=== PATIENT | female | born 1955 | race Caucasian/White ===

== ENCOUNTER 2023-12-22 13:59 | Observation (INO) | payer MEDICARE, BC, SELFPAY ==
[2023-12-22] VITALS (35 sets, daily range): BP systolic 112–189; BP diastolic 72–115; PULSE 62–82; RESP 16–19; TEMP 36.6–36.7; O2SAT 91–97; BMI 30.5; BMI 31.3
--- NOTE | 2023-12-22 14:18 | CRLHL7_ITS ---
For Patients: As a result of the Century Cures Act, medical imaging exams and procedure reports are released immediately into your electronic medical record. You may view this report before your referring provider. If you have questions, please contact your health care provider. INDICATION: COMPARISON: None. TECHNIQUE: CT of the head without contrast. FINDINGS: Brain, ventricles, and extra-axial spaces: No acute intracranial hemorrhage. Murphy-white differentiation is grossly preserved. Size of the ventricles and sulci appears to be commensurate with age. Bones: No acute osseous findings. Mild mucosal thickening in the paranasal sinuses. Visualized mastoid air cells are clear. 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 IMPRESSION: No acute intracranial noncontrast CT findings. Please note that all CT scans at this facility use dose modulation, iterative reconstruction, and/or weight-based dosing when appropriate to reduce radiation dose to as low as reasonably achievable. Dictated by Alexander Victoria MD @ 12/22/2023 2:49:20 PM (Electronically Signed)
[2023-12-22 15:09] LABS: Basophils Absolute Auto 0.04 K/uL (0.00-0.30); Basophils Percent Auto 0.6 % (0.0-3.0); Eosinophils Absolute Auto 0.15 K/uL (0.00-0.50); Eosinophils Percent Auto 2.4 % (0.0-7.0); Hematocrit 46.4 % (33.0-51.0); Hemoglobin* 15.4 gm/dL (12.0-16.0); Immature Granulocytes Abs Auto 0.07 K/uL (0.00-0.30); Immature Granulocytes Pct Auto 1.1 %; Lymphocytes Absolute Auto 1.76 K/uL (0.90-2.90); Lymphocytes Percent Auto 28.3 % (20-44); Mean Corpuscular HGB Conc 33 gm/dL (32-36); Mean Corpuscular Hemoglobin 30 pg (26-34); Mean Corpuscular Volume 90 fL (80-100); Monocytes Percent Auto 9.6 % (0.0-11.0); Platelet Count* 247 K/uL (140-440); RDW Coefficient of Variation % 13.1 % (11.5-15.5); Red Blood Count 5.14 m/uL (4.00-5.20); White Blood Count* 6.22 K/uL (4.50-11.00)
[2023-12-22 15:09] LABS: Troponin, Point-of-Care* 0.03 ng/ml (0.01-0.04)
[2023-12-22] MEDS: 0.9 % SODIUM CHLORIDE 500 ML 500 ML IV (15:09)
[2023-12-22] MEDS: ONDANSETRON 2 MG/ML inj 4 MG IVP (15:10)
[2023-12-22 15:11] LABS: Slide Review Reflex No
[2023-12-22] MEDS: KETOROLAC 15 MG/ML inj IVP (15:11)
[2023-12-22] MEDS: diphenhydrAMINE 50 MG/ML inj 25 MG IVP (15:11)
[2023-12-22 15:25] LABS: Chloride* 104 mmol/L (96-114); Potassium* 3.8 mmol/L (3.6-5.1); Sodium* 139 mmol/L (135-149)
[2023-12-22 15:28] LABS: Anion Gap 11 mEq/L (7-15); Carbon Dioxide* 24 mmol/L (20-32); Creatinine* 0.6 mg/dL (0.5-1.5); Est. Creatinine Clearance* 53.09; Estimated Glomerular Filt Rate 98 ml/min
[2023-12-22 15:29] LABS: Blood Urea Nitrogen* 14 mg/dL (7-30); Calcium* 10.2 mg/dL (8.4-10.6); Glucose* 117 mg/dL (60-115)
[2023-12-22 15:51] LABS: D Dimer Quantitative* < 0.27 ug/ml (0.00-0.50)
--- NOTE | 2023-12-22 16:32 | ED_ITS ---
HPI - General Adult General Date Seen: 12/22/23 Chief complaint: Headache/Migraine Stated complaint: chest pain, headache, high BP, Time Seen by Provider: 12/22/23 14:29 Source: patient Mode of arrival: ambulatory Limitations: no limitations History of Present Illness HPI narrative: Patient is a 68-year-old woman here with her . She went to the dentist today, she said it was a new dentist and they were going over just a treatment plan. She did not actually have any dental work done today. She was checking out of the dentist when she says she got terrible burning pain on the top of her head. She has had a headache behind her left eye that she woke up with this morning. She says that this is a typical migraine for her, she ate half of a Brownie 2 days ago and says that that is probably what triggered it, she says typically 2 days after she eats chocolate she will get a migraine. In any case, the headache behind the eye did not bother her but the headache on the top of her head was new. She says they checked her blood pressure at the dentist's office and it was elevated at around 195 systolic. She also notes she had a brief period where she had some burning in her chest as well although that resolved. She still has this pain on the top of her head although it is milder. She continues to have the headache behind her left eye. She has had a little bit of nausea and a little bit of light sensitivity. No neurologic changes. She does take lisinopril for her blood pressure and says that she has weaned down to 5 mg, but wonders if maybe that is not enough. She has a history of subarachnoid hemorrhage in 2007, she says that they determined that was possibly from multiple concussions. She did not have any aneurysms or require intervention at that time. She is not anticoagulated. Related Data Home Medications ?Medication ?Instructions ?Recorded ?Confirmed levothyroxine 137 mcg capsule 137 mcg PO DAILY 12/22/23 12/22/23 lisinopril 5 mg tablet 5 mg PO DAILY 12/22/23 12/22/23 Allergies Allergy/AdvReac Type Severity Reaction Status Date / Time gluten Allergy Verified 12/22/23 14:09 penicillin G Allergy Verified 12/22/23 14:09 Review of Systems Status of ROS: Reports: 10 or more systems reviewed and unremarkable except as noted in History and below [facility] Social History Smoking Status: Never smoker How often do you have a drink containing alcohol: 4 or more times a week How many standard drinks containing alcohol do you have on a typical day: 1 or 2 How often do you have six or more drinks on one occasion: Never AUDIT-C Alcohol total score: 4 Non-prescribed substance use: denies use Exam Narrative: Exam Narrative: Vital signs as noted above. In general, an alert, well-appearing patient. Head: Normocephalic, atraumatic. Eyes: Pupils are equal reactive. Extraocular movements are full. Conjunctivae are normal. ENT: Mucous membranes are moist. Throat is normal. Neck: Supple without lymphadenopathy. Heart: Regular rate and rhythm. No murmur or rub. Lungs: Clear bilaterally. No increased work of breathing, crackles or wheezes. Abdomen: Soft and nontender. No organomegaly. Extremities: Well perfused. No edema. No calf tenderness. Pulses intact. Neurologic: Patient is alert and oriented to person and place. Speech is fluent. Face is symmetric. Moves all extremities equally. Affect: Normal. Skin: Warm and dry. Well perfused. Const: Vital Signs, click to edit/add: Vital Signs - 24 hr 12/22/23 14:04 12/22/23 15:06 12/22/23 15:08 Temperature 97.8 F Pulse Rate 71 80 Pulse Rate [Right Pulse Oximeter] 66 Respiratory Rate 19 Blood Pressure 171/109 H Blood Pressure [Ri ght Upper Arm] 170/107 H Pulse Oximetry 95 95 96 Oxygen Delivery Me thod Room Air 12/22/23 15:15 12/22/23 15:20 12/22/23 15:20 Temperature Pulse Rate 78 76 76 Pulse Rate [Right Pulse Oximeter] Respiratory Rate Blood Pressure 189/115 H 189/115 H Blood Pressure [Ri ght Upper Arm] Pulse Oximetry 96 95 95 Oxygen Delivery Me thod 12/22/23 15:21 12/22/23 15:30 12/22/23 15:33 Temperature Pulse Rate 76 72 76 Pulse Rate [Right Pulse Oximeter] Respiratory Rate Blood Pressure 178/108 H Blood Pressure [Ri ght Upper Arm] Pulse Oximetry 96 97 95 Oxygen Delivery Me thod 12/22/23 15:45 12/22/23 16:00 12/22/23 16:02 Temperature Pulse Rate 82 73 72 Pulse Rate [Right Pulse Oximeter] Respiratory Rate Blood Pressure 149/95 H Blood Pressure [Ri ght Upper Arm] Pulse Oximetry 96 94 96 Oxygen Delivery Me thod 12/22/23 16:02 12/22/23 16:03 12/22/23 16:15 Temperature Pulse Rate 72 70 76 Pulse Rate [Right Pulse Oximeter] Respiratory Rate Blood Pressure 149/95 H Blood Pressure [Ri ght Upper Arm] Pulse Oximetry 96 94 94 Oxygen Delivery Me thod 12/22/23 17:28 12/22/23 17:30 12/22/23 17:32 Temperature Pulse Rate 69 72 70 Pulse Rate [Right Pulse Oximeter] Respiratory Rate Blood Pressure 127/82 Blood Pressure [Ri ght Upper Arm] Pulse Oximetry 94 91 92 Oxygen Delivery Me thod 12/22/23 17:45 12/22/23 18:00 12/22/23 18:02 Temperature Pulse Rate 69 70 66 Pulse Rate [Right Pulse Oximeter] Respiratory Rate Blood Pressure 112/72 Blood Pressure [Ri ght Upper Arm] Pulse Oximetry 93 94 93 Oxygen Delivery Me thod 12/22/23 18:03 12/22/23 18:15 12/22/23 18:30 Temperature Pulse Rate 69 71 67 Pulse Rate [Right Pulse Oximeter] Respiratory Rate Blood Pressure Blood Pressure [Ri ght Upper Arm] Pulse Oximetry 94 96 95 Oxygen Delivery Me thod 12/22/23 18:32 12/22/23 18:33 12/22/23 18:45 Temperature Pulse Rate 65 71 67 Pulse Rate [Right Pulse Oximeter] Respiratory Rate Blood Pressure 154/93 H Blood Pressure [Ri ght Upper Arm] Pulse Oximetry 94 94 96 Oxygen Delivery Me thod 12/22/23 19:23 12/22/23 19:30 12/22/23 19:32 Temperature Pulse Rate 73 75 77 Pulse Rate [Right Pulse Oximeter] Respiratory Rate Blood Pressure 140/99 H Blood Pressure [Ri ght Upper Arm] Pulse Oximetry 93 95 95 Oxygen Delivery Me thod Documenting provider has reviewed patient's vital signs: yes Course Course ED Course: On arrival, a stroke code was called initially secondary to new onset headache and hypertension. She went over for CT scan of the head which I reviewed I did not see any evidence of intracranial hemorrhage. In the absence of findings on CT or neurologic changes, the stroke code was canceled. We are within 6 hours of onset of symptoms and I think a CT scan is adequate to rule out subarachnoid hemorrhage in this case. She had an EKG, there is some artifact in leads V4 5 and 6, but overall the EKG shows some nonspecific ST and T changes, maybe a mm of ST depression in lead 2 and F but none in lead 3, no significant reciprocal changes. Initial troponin was 0.03. She did request treatment for the headache behind her left eye, she thought the headache might be contributing to her elevated blood pressure readings. She received Zofran, Toradol and Benadryl, and her blood pressure has in fact come down to 149/95. Headache is improved. Blood work shows a white blood cell count of 6.22, hemoglobin of 15.4, I checked a D-dimer, mostly with the thought of venous sinus thrombosis in mine. My clinical suspicion for this is low and the D-dimer is negative, I think this ef fectively rules this diagnosis out. Metabolic panel is normal. I do think with her troponin at 0.03 that it makes sense to do a repeat troponin. Repeat point of care troponin was 0.12, I checked this in the lab and came back at 0.18. She has not had any chest pain since arrival. Continues to feel well. She had essentially 15 minutes of this burning sensation in her chest at the time her blood pressure was high. I did talk with Dr. Mario, on-call for Cardiology at [place]. He felt that her troponin bump is likely related to the period of hypertension, did not feel that she needed heparinized or transferred at this time. He did recommend admission for serial troponins, an echo tomorrow and then outpatient follow-up for stress test with Cardiology. He said that his staff can arrange her outpatient follow-up if we were able to keep her here in the hospital. I have discussed her care with Dr. Buenrostro, he will admit her as outlined above. Vital Signs Vital signs: Initial Vital Signs Temperature 97.8 F 12/22/23 14:04 Temperature Source Temporal Artery Scan 12/22/23 14:04 Pulse Rate 66 12/22/23 14:04 Respiratory Rate 19 12/22/23 14:04 Blood Pressure 170/107 H 12/22/23 14:04 Blood Pressure Mean 128 H 12/22/23 14:04 Blood Pressure Position Sitting 12/22/23 14:04 Pulse Oximetry 95 12/22/23 14:04 Oxygen Delivery Method Room Air 12/22/23 14:04 Vital Signs Temperature 97.8 F 12/22/23 14:04 Pulse Rate 66 12/22/23 14:04 Respiratory Rate 19 12/22/23 14:04 Blood Pressure 170/107 H 12/22/23 14:04 Pulse Oximetry 95 12/22/23 14:04 Oxygen Delivery Method Room Air 12/22/23 14:04 Temperature 97.8 F 12/22/23 14:04 Pulse Rate 77 12/22/23 19:32 Respiratory Rate 19 12/22/23 14:04 Blood Pressure 140/99 H 12/22/23 19:32 Pulse Oximetry 95 12/22/23 19:32 Oxygen Delivery Method Room Air 12/22/23 14:04 Medications Administered Medications: Discontinued Medications Generic Name Dose Route Start Last Admin Trade Name Loiq PRN Reason Stop Dose Admin Aspirin 324 mg 12/22/23 19:19 12/22/23 19:29 Aspirin 81 Mg Tab.Chew PO 12/22/23 19:20 324 mg ONCE ONE Administration Diphenhydramine HCl 25 mg 12/22/23 14:48 12/22/23 15:11 Diphenhydramine 50 Mg/Ml Inj IVP 12/22/23 14:49 25 mg ONCE ONE Administration Sodium Chloride 500 mls @ 500 mls/hr 12/22/23 14:48 12/22/23 16:25 0.9 % Sodium Chloride 500 Ml IV 12/22/23 15:47 Infused .Q1H ONE Infusion Ketorolac Tromethamine 15 mg 12/22/23 14:48 12/22/23 15:11 Ketorolac 15 Mg/Ml Inj IVP 12/22/23 14:49 15 mg ONCE ONE Administration Ondansetron HCl 4 mg 12/22/23 14:48 12/22/23 15:10 Ondansetron 2 Mg/Ml Inj IVP 12/22/23 14:49 4 mg ONCE ONE Administration Medical Decision Making Lab Data Labs: Lab Results 12/22/23 12/22/23 12/22/23 Range/Units 14:44 14:51 17:06 WBC 6.22 (4.50-11.00) K/uL RBC 5.14 (4.00-5.20) m/uL Hgb 15.4 (12.0-16.0) gm/dL Hct 46.4 (33.0-51.0) % MCV 90 (80-100) fL MCH 30 (26-34) pg MCHC 33 (32-36) gm/dL RDW Coeff of Leno 13.1 (11.5-15.5) % Plt Count 247 (140-440) K/uL Neut % (Auto) 58.0 (42.0-72.0) % Lymph % (Auto) 28.3 (20-44) % [place] % (Auto) 9.6 (0.0-11.0) % Eos % (Auto) 2.4 (0.0-7.0) % Baso % (Auto) 0.6 (0.0-3.0) % Neut # (Auto) 3.60 (1.7-7.0) K/uL Lymph # (Auto) 1.76 (0.90-2.90) K/uL [place] # (Auto) 0.60 (0.00-0.90) K/UL Eos # (Auto) 0.15 (0.00-0.50) K/uL Baso # (Auto) 0.04 (0.00-0.30) K/uL Abs Immat Gran (auto) 0.07 (0.00-0.30) K/uL Imm/Tot Granulo (auto) 1.1 % D-Dimer Quant (PE/DVT) < 0.27 (0.00-0.50) ug/ml Sodium 139 (135-149) mmol/L Potassium 3.8 (3.6-5.1) mmol/L Chloride 104 (96-114) mmol/L Carbon Dioxide 24 (20-32) mmol/L Anion Gap 11 (7-15) mEq/L BUN 14 (7-30) mg/dL Creatinine 0.6 (0.5-1.5) mg/dL Estimated Creat Clear 53.09 Estimated GFR 98 ml/min Glucose 117 H (60-115) mg/dL Calcium 10.2 (8.4-10.6) mg/dL Troponin I (0.01-0.04) ng/mL Lab Acknowledgement POC Troponin I 0.03 0.12 H (0.01-0.04) ng/ml 12/22/23 12/22/23 Range/Units 17:10 19:27 WBC (4.50-11.00) K/uL RBC (4.00-5.20) m/uL Hgb (12.0-16.0) gm/dL Hct (33.0-51.0) % MCV (80-100) fL MCH (26-34) pg MCHC (32-36) gm/dL RDW Coeff of Leon (11.5-15.5) % Plt Count (140-440) K/uL Neut % (Auto) (42.0-72.0) % Lymph % (Auto) (20-44) % [place] % (Auto) (0.0-11.0) % Eos % (Auto) (0.0-7.0) % Baso % (Auto) (0.0-3.0) % Neut # (Auto) (1.7-7.0) K/uL Lymph # (Auto) (0.90-2.90) K/uL [place] # (Auto) (0.00-0.90) K/UL Eos # (Auto) (0.00-0.50) K/uL Baso # (Auto) (0.00-0.30) K/uL Abs Immat Gran (auto) (0.00-0.30) K/uL Imm/Tot Granulo (auto) % D-Dimer Quant (PE/DVT) (0.00-0.50) ug/ml Sodium (135-149) mmol/L Potassium (3.6-5.1) mmol/L Chloride (96-114) mmol/L Carbon Dioxide (20-32) mmol/L Anion Gap (7-15) mEq/L BUN (7-30) mg/dL Creatinine (0.5-1.5) mg/dL Estimated Creat Clear Estimated GFR ml/min Glucose (60-115) mg/dL Calcium (8.4-10.6) mg/dL Troponin I 0.18 H* (0.01-0.04) ng/mL Lab Acknowledgement Test Added POC Troponin I (0.01-0.04) ng/ml Discharge Plan Discharge Clinical Impression: Hypertension, Headache, Elevated troponin I level Patient Disposition: Admitted As Observation Condition: Improved
[2023-12-22 17:30] LABS: Troponin, Point-of-Care* 0.12 ng/ml (0.01-0.04)
[2023-12-22 18:19] LABS: Troponin I* 0.18 ng/mL (0.01-0.04)
[2023-12-22] MEDS: ASPIRIN 81 MG TAB.CHEW 324 MG PO (19:29)
[2023-12-22 20:13] LABS: Troponin I* 0.03 ng/mL (0.01-0.04)
[2023-12-22] MEDS: SODIUM CHLORIDE 0.9 % (FLUSH) 10 ML SYRINGE 5 ML IVF (21:15)
[2023-12-22 21:40] LABS: Troponin I* 0.24 ng/mL (0.01-0.04)
--- NOTE | 2023-12-22 22:32 | P.IMHP_ITS ---
Hospitalist- H&P: HPI History of Present Illness Date Seen: 12/22/23 Chief complaint: chest pain, headache, high BP, Narrative: Frieda Mayer is a 68 year old woman who presented to the emergency department today at the behest of her dentist due to elevated blood pressure. Had an appointment with a new dentist today to establish care and not have any dental work done. While at the dentist developed terrible, burning pain on the top of her head as she does when she has a migraine headache. In association with this her blood pressures were elevated with systolic values as high as 195 mmHg while at the dentist office. Also had transient episode of burning in her chest and left eye discomfort. These resolved before arriving to the emergency department. No acute neurologic changes. She surmises that her migraine occurred in consequence of her consuming a chocolate brawny 2 days ago, as something similar to this has happened in the past after such exposure. Details intolerance to various foods, including gluten. Has been working with her primary care physician to lower her antihypertensive medication lisinopril due to previously having lightheaded episodes while on higher doses. Lisinopril dose has been down to 5 mg for a few months now. Has been doing well in that regard for the most part. She was evaluated and managed in our emergency department. Headache significantly improved and for the most part resolved after standard treatment for migraine headache. Blood pressure is significantly improved with resolution of headache. CT scan of the head demonstrated no acute hemorrhage. Controlled by initially mildly elevated at 0.03. Repeat trop I subsequently elevated at 0.18. Electrocardiogram without acute infarct or ischemic changes. Discussion undertaken with [facility] internet network specialist, Dr. Peters, who surmises that patient has myocardial injury related to hypertensive urgency episode that is nonischemic and nontraumatic and recommended admission for observation, cardiac monitoring, serial EKG, serial troponin I, and echocardiogram. She also recommended if patient does well to set up outpatient followup with internet network specialist at the [facility], where they would continue to assess her and risk stratify her for ischemic cardiac disease. Review of Systems Status of ROS: Reports: 6 or more systems reviewed and unremarkable except as noted in History and below Narrative: She has never had a an acute myocardial infarction in the past. To the best of her knowledge she does not have coronary artery disease or hyperlipidemia. Has never used any tobacco products. Drinks 1 glass of wine every night. Remains physically active without symptoms or limitations. As I visit with her she denies chest, neck, back, or arm heaviness, pressure, tightness, or pain. Denies nausea or vomiting. Denies any other anginal equivalent. Denies syncope or near-syncope. Denies palpitations or chest fl uttering. Denies edema. Designates her , Madi, as her power of survey worker for health should that be required. His cell phone number is [phone]. She requests full resuscitation in the event of cardiopulmonary demise. [facility] Medical History (Updated 12/22/23 @ 23:00 by Parish Buenrostro MD) Gluten intolerance ?K90.41 - Non-celiac gluten sensitivity (ICD-10) History of subarachnoid hemorrhage ?Z86.79 - Personal history of other diseases of the circulatory system (ICD- 10) Migraine with aura and without status migrainosus, not intractable ?G43.109 - Migraine with aura, not intractable, without status migrainosus (ICD-10) Nonrheumatic mitral valve regurgitation ?I34.0 - Nonrheumatic mitral (valve) insufficiency (ICD-10) Hypothyroidism ?E03.9 - Hypothyroidism, unspecified (ICD-10) Hypertension ?I10 - Essential (primary) hypertension (ICD-10) Surgical History (Updated 12/22/23 @ 22:28 by Parish Buenrostro MD) History of tonsillectomy ?Z90.89 - Acquired absence of other organs (ICD-10) History of right oophorectomy ?Z90.721 - Acquired absence of ovaries, unilateral (ICD-10) History of laparoscopic cholecystectomy ?Z90.49 - Acquired absence of other specified parts of digestive tract (ICD- 10) History of hysterectomy for benign disease ?Z90.710 - Acquired absence of both cervix and uterus (ICD-10) Family History (Updated 12/22/23 @ 22:32 by Parish Buenrostro MD) Brother Aneurysm Maternal Grandmother Aneurysm Paternal Grandfather Kidney disease Mother Diabetes Breast cancer Father Diabetes Parkinson disease Social History What is your current living situation?: I presently have a place to live Problems where you live: no known problems Problems where you live details: NA In the past 12 months, utilities in danger of being shut off: no In past 12 months, lack of transportation kept you from medical appts, meetings, work, or getting things needed for daily living: no In the past 12 mos, have been you worried that your food would run out before you had money to buy more?: never true In the past 12 mos, the food you bought just didn't last and you didn't have money to buy more?: never true Highest level of school completed/degree received: Bachelor's degree Smoking Status: Never smoker How often do you have a drink containing alcohol: 4 or more times a week Alcohol type: wine How many standard drinks containing alcohol do you have on a typical day: 1 or 2 How often do you have six or more drinks on one occasion: Never AUDIT-C Alcohol total score: 4 Non-prescribed substance use: denies use How often does anyone, including family, friends and others, physically hurt you : never How often does anyone, including family, friends and others, insult or talk down to you: never How often does anyone, including family, friends and others, threaten you with harm: never How often does anyone, including family, friends and others, scream or curse at you: never service: No Meds Home Medications and Allergies Home Medications ?Medication ?Instructions ?Recorded ?Confirmed ?Type levothyroxine 137 mcg capsule 137 mcg PO DAILY 12/22/23 12/22/23 History lisinopril 5 mg tablet 5 mg PO DAILY 12/22/23 12/22/23 History Home Medication Comments: She states she strictly adheres to her medication regimen as prescribed. Allergies Allergy/AdvReac Type Severity Reaction Status Date / Time gluten Allergy Verified 12/22/23 14:09 penicillin G Allergy Verified 12/22/23 14:09 Exam Narrative: Exam Narrative: Examine her in the emergency department. She appears comfortable and in no acute distress. By the time I see her her systolic blood pressures are 140-150 mmHg with diastolic values around 80 mmHg. Vision and hearing are adequate. Alert and oriented x4. Friendly, articulate, cooperative. Cranial nerves 3-12 grossly normal. No focal motor neurologic deficits. External auditory canals and tympanic membranes are normal. Midline nasal septum. Normal buccal mucosa. Mallampati class 3 airway. No icterus or conjunctival injection. Pupils equally round and reactive to light and accommodation. Conjugate gaze. Neck is supple. Midline trachea. No head neck lymphadenopathy. Lungs entirely clear to auscultation without wheezing, rhonchi, or rales. Chest wall excursions are full. No CVA tenderness to thumping. Heart tones with regular rhythm, normal S1-S2, without obvious murmur, gallop, or rub. PMI not laterally displaced. Abdomen with active bowel sounds, soft, nontender. No rebound or guarding. Extremities without edema. Palpable pulses upper and lower extremities. Capillary refill less than 3 seconds in upper and lower extremities. Independent transfer, station, and gait. Skin is warm, dry, intact. No petechiae, rashes, jaundice, or cyanosis. Const: Vital Signs, click to edit/add: Vital Signs - 24 hr 12/22/23 14:04 12/22/23 15:06 12/22/23 15:08 Temperature 97.8 F Pulse Rate 71 80 Pulse Rate [Pulse Oximeter] Pulse Rate [Right Pulse Oximeter] 66 Respiratory Rate 19 Blood Pressure 171/109 H Blood Pressure [Le ft Arm] Blood Pressure [Ri ght Upper Arm] 170/107 H Pulse Oximetry 95 95 96 Oxygen Delivery Me thod Room Air 12/22/23 15:15 12/22/23 15:20 12/22/23 15:20 Temperature Pulse Rate 78 76 76 Pulse Rate [Pulse Oximeter] Pulse Rate [Right Pulse Oximeter] Respiratory Rate Blood Pressure 189/115 H 189/115 H Blood Pressure [Le ft Arm] Blood Pressure [Ri ght Upper Arm] Pulse Oximetry 96 95 95 Oxygen Delivery Me thod 12/22/23 15:21 12/22/23 15:30 12/22/23 15:33 Temperature Pulse Rate 76 72 76 Pulse Rate [Pulse Oximeter] Pulse Rate [Right Pulse Oximeter] Respiratory Rate Blood Pressure 178/108 H Blood Pressure [Le ft Arm] Blood Pressure [Ri ght Upper Arm] Pulse Oximetry 96 97 95 Oxygen Delivery Me thod 12/22/23 15:45 12/22/23 16:00 12/22/23 16:02 Temperature Pulse Rate 82 73 72 Pulse Rate [Pulse Oximeter] Pulse Rate [Right Pulse Oximeter] Respiratory Rate Blood Pressure 149/95 H Blood Pressure [Le ft Arm] Blood Pressure [Ri ght Upper Arm] Pulse Oximetry 96 94 96 Oxygen Delivery Pa thod 12/22/23 16:02 12/22/23 16:03 12/22/23 16:15 Temperature Pulse Rate 72 70 76 Pulse Rate [Pulse Oximeter] Pulse Rate [Right Pulse Oximeter] Respiratory Rate Blood Pressure 149/95 H Blood Pressure [Le ft Arm] Blood Pressure [Ri ght Upper Arm] Pulse Oximetry 96 94 94 Oxygen Delivery Pa thod 12/22/23 17:28 12/22/23 17:30 12/22/23 17:32 Temperature Pulse Rate 69 72 70 Pulse Rate [Pulse Oximeter] Pulse Rate [Right Pulse Oximeter] Respiratory Rate Blood Pressure 127/82 Blood Pressure [Le ft Arm] Blood Pressure [Ri ght Upper Arm] Pulse Oximetry 94 91 92 Oxygen Delivery Pa thod 12/22/23 17:45 12/22/23 18:00 12/22/23 18:02 Temperature Pulse Rate 69 70 66 Pulse Rate [Pulse Oximeter] Pulse Rate [Right Pulse Oximeter] Respiratory Rate Blood Pressure 112/72 Blood Pressure [Le ft Arm] Blood Pressure [Ri ght Upper Arm] Pulse Oximetry 93 94 93 Oxygen Delivery Pa thod 12/22/23 18:03 12/22/23 18:15 12/22/23 18:30 Temperature Pulse Rate 69 71 67 Pulse Rate [Pulse Oximeter] Pulse Rate [Right Pulse Oximeter] Respiratory Rate Blood Pressure Blood Pressure [Le ft Arm] Blood Pressure [Ri ght Upper Arm] Pulse Oximetry 94 96 95 Oxygen Delivery Pa thod 12/22/23 18:32 12/22/23 18:33 12/22/23 18:45 Temperature Pulse Rate 65 71 67 Pulse Rate [Pulse Oximeter] Pulse Rate [Right Pulse Oximeter] Respiratory Rate Blood Pressure 154/93 H Blood Pressure [Le ft Arm] Blood Pressure [Ri ght Upper Arm] Pulse Oximetry 94 94 96 Oxygen Delivery Pa thod 12/22/23 19:23 12/22/23 19:30 12/22/23 19:32 Temperature Pulse Rate 73 75 77 Pulse Rate [Pulse Oximeter] Pulse Rate [Right Pulse Oximeter] Respiratory Rate Blood Pressure 140/99 H Blood Pressure [Le ft Arm] Blood Pressure [Ri ght Upper Arm] Pulse Oximetry 93 95 95 Oxygen Delivery Pa thod 12/22/23 19:33 12/22/23 19:45 12/22/23 20:00 Temperature Pulse Rate 75 80 76 Pulse Rate [Pulse Oximeter] Pulse Rate [Right Pulse Oximeter] Respiratory Rate Blood Pressure Blood Pressure [Le ft Arm] Blood Pressure [Ri ght Upper Arm] Pulse Oximetry 93 94 94 Oxygen Delivery Me thod 12/22/23 20:02 12/22/23 20:03 12/22/23 21:16 Temperature 98.1 F Pulse Rate 78 76 Pulse Rate [Pulse Oximeter] 72 Pulse Rate [Right Pulse Oximeter] Respiratory Rate 16 Blood Pressure 144/94 H Blood Pressure [Le ft Arm] 122/82 Blood Pressure [Ri ght Upper Arm] Pulse Oximetry 96 94 92 Oxygen Delivery Me thod Room Air 12/22/23 21:16 Temperature Pulse Rate Pulse Rate [Pulse Oximeter] Pulse Rate [Right Pulse Oximeter] Respiratory Rate 16 Blood Pressure Blood Pressure [Le ft Arm] Blood Pressure [Ri ght Upper Arm] Pulse Oximetry 92 Oxygen Delivery Me thod Room Air Hospitalist - H&P: Result Labs Labs: Short CBC 12/22/23 Range/Units 14:44 WBC 6.22 (4.50-11.00) K/uL Hgb 15.4 (12.0-16.0) gm/dL Hct 46.4 (33.0-51.0) % Plt Count 247 (140-440) K/uL BMP 12/22/23 14:44 Sodium 139 Potassium 3.8 Chloride 104 Carbon Dioxide 24 BUN 14 Creatinine 0.6 Glucose 117 H Calcium 10.2 Cardiac Enzymes 12/22/23 12/22/23 12/22/23 Range/Units 14:44 17:10 20:58 Troponin I 0.03 0.18 H* 0.24 H* (0.01-0.04) ng/mL ECG Attestation: I personally reviewed and interpreted this ECG as follows: ECG interpretation date: 12/22/23 Interpretation: No acute infarct or ischemic changes. Normal sinus rhythm. Nonspecific T-wave abnormalities. Imaging CT scan - head: Attestation: I have reviewed the pertinent imaging results. Radiologist's impression: No acute intracranial abnormalities noted with noncontrast CT scan of head. Assessment and Plan Assessment and plan (1) Hypertensive urgency: Problem comment: - transient and likely related to her complaint of migraine headache - monitor closely while in hospital Status: Acute (2) Elevated troponin I level: Problem comment: - serial troponin I's gradually rising from 0.03, to 0.18, to 0.24. - no ischemic or infarct changes on electrocardiograms - cardiac monitoring, serial electrocardiogram, serial troponin I's, and echocardiogram - if her condition remains stable throughout the hospital stay she may be discharged with follow-up at the [facility] - if her condition destabilizes or worsens then consider appropriate intervention and or transfer Status: Acute (3) Nonischemic nontraumatic myocardial injury: Problem comment: - most likely cause of slow rising troponin I in the setting of transient hypertensive urgency related to acute migraine headache that has since resolved Status: Acute (4) Migraine headache: Problem comment: - resolved with treatment efforts administered in the emergency department on 12/22/2023 - longstanding history of migraine headaches - consider referral to Neurology to reduce risk of future episodes and to address future episodes promptly and effectively Status: Acute (5) Gluten intolerance: Status: Acute Plan 1. Reviewed impression and recommended plans with patient and her . 2. Answered their questions to their satisfaction. 3. They are agreeable with above stated plans and recommendations. Total Time Spent Total Time Spent: 65 minutes
--- NOTE | 2023-12-22 23:23 | PC.NURSE ---
Pt admitted to the floor at 2019. She is A&O, afebrile and VSS. She ambulates independently in the room and is continent of both B&B. PIV in left AC SL and C/D/I. SCD?s applied to BLE. EKG completed on admission reading NSR & TELE applied. 2100 troponin: 0.24; next draw @ 2300. Pt denies any nausea or dizziness. Reports left sided headache at 2/10 with no interventions needed at this time. ?
[2023-12-22 23:46] LABS: Troponin I* 0.26 ng/mL (0.01-0.04)
[2023-12-23] VITALS (8 sets, daily range): BP systolic 102–133; BP diastolic 69–82; PULSE 60–73; RESP 12–18; TEMP 36.3–36.7; O2SAT 90–94
[2023-12-23] MEDS: ACETAMINOPHEN 325 MG TABLET 650 MG PO ×3 (04:23→15:58)
[2023-12-23] MEDS: LEVOTHYROXINE 112 MCG TABLET PO (06:39)
[2023-12-23] MEDS: LEVOTHYROXINE 25 MCG TABLET PO (06:39)
[2023-12-23 06:50] LABS: Cholesterol* 227 mg/dL (90-199)
[2023-12-23 06:51] LABS: HDL Cholesterol* 61 mg/dL (>=50); LDL Cholesterol Calculated 148 mg/dL (<100); Triglycerides* 89 mg/dL (40-149)
[2023-12-23 07:02] LABS: Troponin I* 0.14 ng/mL (0.01-0.04)
--- NOTE | 2023-12-23 07:41 | PC.NURSE ---
end of shift note: pt pleasant and cooperative with cares. a&o. up independently within room. pt reports CAGLE with relief from prn pain reliever. trops have started to trend down as of this morning. pt slept on/off throughout night. tele reads NSR. uneventful night
[2023-12-23] MEDS: SODIUM CHLORIDE 0.9 % (FLUSH) 10 ML SYRINGE 5 ML IVF (08:48)
[2023-12-23] MEDS: lisinopriL 5 MG TABLET PO (08:48)
--- NOTE | 2023-12-23 11:43 | P.DS_ITS ---
DS: Providers Provider Date Seen: 12/23/23 Date of admission: 12/22/23 20:06 Primary care physician: Not a Local Provider Admitting Clinician: Parish Buenrostro MD Attending Physician on discharge: Bailey Kan [facility] Date of Discharge: 12/23/23 DS: Diagnosis Discharge Diagnosis (1) Hypertensive urgency: Status: Resolved Problem details: - transient and likely related to her complaint of migraine headache - monitor closely while in hospital Blood pressure on day of discharge 106/69 (2) Elevated troponin I level: Status: Acute Problem details: - serial troponin I's gradually rising from 0.03, to 0.18, to 0.24. - no ischemic or infarct changes on electrocardiograms - cardiac monitoring, serial electrocardiogram, serial troponin I's, and echocardiogram - if her condition remains stable throughout the hospital stay she may be discharged with follow-up at the [facility] [place] - if her condition destabilizes or worsens then consider appropriate intervention and or transfer Troponins trended down, 0.14 on day of discharge. Awaiting echocardiogram (3) Nonischemic nontraumatic myocardial injury: Status: Acute Problem details: - most likely cause of slow rising troponin I in the setting of transient hypertensive urgency related to acute migraine headache that has since resolved Awaiting echocardiogram prior to discharge (4) Migraine headache: Status: Acute Problem details: - resolved with treatment efforts administered in the emergency department on 12/22/2023 - longstanding history of migraine headaches - consider referral to Neurology to reduce risk of future episodes and to address future episodes promptly and effectively Has residual, mild headache which is normal for her migraines, typically lasting 3-5 days. No new or unusual symptoms reported (5) Gluten intolerance: Status: Acute Problem details: Noted DS: Summary Hospital Course Hospital Course: [age] year old female was admitted to the medical floor for observation, further workup in setting of hypertensive urgency, elevated troponins. Course of care and details as noted above. Troponins noted to trend down. Awaiting echocardiogram prior to discharge. Remainder of chronic medical comorbidities were monitored and managed with home medications. Status at Discharge Functional status at discharge: independent ambulation Overall status at discharge: patient is back to baseline Time Spent with Patient Time attestation: Total time spent providing and/or coordinating discharge services: Time spent: Greater than 30 minutes Exam Narrative: Exam Narrative: PHYSICAL EXAM General: Pleasant, conversant, NAD Cardiovascular: RRR Pulmonary: No dyspnea Neurological: Alert, answering questions appropriately Skin: Warm, dry. Const: Vital Signs, click to edit/add: Vital Signs - 24 hr 12/22/23 14:04 12/22/23 15:06 12/22/23 15:08 Temperature 97.8 F Pulse Rate 71 80 Pulse Rate [Pulse Oximeter] Pulse Rate [Right Pulse Oximeter] 66 Respiratory Rate 19 Blood Pressure 171/109 H Blood Pressure [Le ft Arm] Blood Pressure [Ri ght Arm] Blood Pressure [Ri ght Upper Arm] 170/107 H Pulse Oximetry 95 95 96 Oxygen Delivery Me thod Room Air 12/22/23 15:15 12/22/23 15:20 12/22/23 15:20 Temperature Pulse Rate 78 76 76 Pulse Rate [Pulse Oximeter] Pulse Rate [Right Pulse Oximeter] Respiratory Rate Blood Pressure 189/115 H 189/115 H Blood Pressure [Le ft Arm] Blood Pressure [Ri ght Arm] Blood Pressure [Ri ght Upper Arm] Pulse Oximetry 96 95 95 Oxygen Delivery Me thod 12/22/23 15:21 12/22/23 15:30 12/22/23 15:33 Temperature Pulse Rate 76 72 76 Pulse Rate [Pulse Oximeter] Pulse Rate [Right Pulse Oximeter] Respiratory Rate Blood Pressure 178/108 H Blood Pressure [Le ft Arm] Blood Pressure [Ri ght Arm] Blood Pressure [Ri ght Upper Arm] Pulse Oximetry 96 97 95 Oxygen Delivery Me thod 12/22/23 15:45 12/22/23 16:00 12/22/23 16:02 Temperature Pulse Rate 82 73 72 Pulse Rate [Pulse Oximeter] Pulse Rate [Right Pulse Oximeter] Respiratory Rate Blood Pressure 149/95 H Blood Pressure [Le ft Arm] Blood Pressure [Ri ght Arm] Blood Pressure [Ri ght Upper Arm] Pulse Oximetry 96 94 96 Oxygen Delivery Me thod 12/22/23 16:02 12/22/23 16:03 12/22/23 16:15 Temperature Pulse Rate 72 70 76 Pulse Rate [Pulse Oximeter] Pulse Rate [Right Pulse Oximeter] Respiratory Rate Blood Pressure 149/95 H Blood Pressure [Le ft Arm] Blood Pressure [Ri ght Arm] Blood Pressure [Ri ght Upper Arm] Pulse Oximetry 96 94 94 Oxygen Delivery Me thod 12/22/23 17:28 12/22/23 17:30 12/22/23 17:32 Temperature Pulse Rate 69 72 70 Pulse Rate [Pulse Oximeter] Pulse Rate [Right Pulse Oximeter] Respiratory Rate Blood Pressure 127/82 Blood Pressure [Le ft Arm] Blood Pressure [Ri ght Arm] Blood Pressure [Ri ght Upper Arm] Pulse Oximetry 94 91 92 Oxygen Delivery Al thod 12/22/23 17:45 12/22/23 18:00 12/22/23 18:02 Temperature Pulse Rate 69 70 66 Pulse Rate [Pulse Oximeter] Pulse Rate [Right Pulse Oximeter] Respiratory Rate Blood Pressure 112/72 Blood Pressure [Le ft Arm] Blood Pressure [Ri ght Arm] Blood Pressure [Ri ght Upper Arm] Pulse Oximetry 93 94 93 Oxygen Delivery Al thod 12/22/23 18:03 12/22/23 18:15 12/22/23 18:30 Temperature Pulse Rate 69 71 67 Pulse Rate [Pulse Oximeter] Pulse Rate [Right Pulse Oximeter] Respiratory Rate Blood Pressure Blood Pressure [Le ft Arm] Blood Pressure [Ri ght Arm] Blood Pressure [Ri ght Upper Arm] Pulse Oximetry 94 96 [facility] 18:32 12/22/23 18:33 12/22/23 18:45 Temperature Pulse Rate 65 71 67 Pulse Rate [Pulse Oximeter] Pulse Rate [Right Pulse Oximeter] Respiratory Rate Blood Pressure 154/93 H Blood Pressure [Le ft Arm] Blood Pressure [Ri ght Arm] Blood Pressure [Ri ght Upper Arm] Pulse Oximetry 94 94 96 [facility]/22/23 19:23 12/22/23 19:30 12/22/23 19:32 Temperature Pulse Rate 73 75 77 Pulse Rate [Pulse Oximeter] Pulse Rate [Right Pulse Oximeter] Respiratory Rate Blood Pressure 140/99 H Blood Pressure [Le ft Arm] Blood Pressure [Ri ght Arm] Blood Pressure [Ri ght Upper Arm] Pulse Oximetry 93 95 95 Oxygen Delivery Al thod 12/22/23 19:33 12/22/23 19:45 12/22/23 20:00 Temperature Pulse Rate 75 80 76 Pulse Rate [Pulse Oximeter] Pulse Rate [Right Pulse Oximeter] Respiratory Rate Blood Pressure Blood Pressure [Le ft Arm] Blood Pressure [Ri ght Arm] Blood Pressure [Ri ght Upper Arm] Pulse Oximetry 93 94 94 Oxygen Delivery Me thod 12/22/23 20:02 12/22/23 20:03 12/22/23 21:16 Temperature 98.1 F Pulse Rate 78 76 Pulse Rate [Pulse Oximeter] 72 Pulse Rate [Right Pulse Oximeter] Respiratory Rate 16 Blood Pressure 144/94 H Blood Pressure [Le ft Arm] 122/82 Blood Pressure [Ri ght Arm] Blood Pressure [Ri ght Upper Arm] Pulse Oximetry 96 94 92 Oxygen Delivery Me thod Room Air 12/22/23 21:16 12/22/23 23:00 12/23/23 00:15 Temperature Pulse Rate 62 Pulse Rate [Pulse Oximeter] 60 Pulse Rate [Right Pulse Oximeter] Respiratory Rate 16 16 Blood Pressure Blood Pressure [Le ft Arm] Blood Pressure [Ri ght Arm] Blood Pressure [Ri ght Upper Arm] Pulse Oximetry 92 Oxygen Delivery Al thod Room Air 12/23/23 00:15 12/23/23 00:15 12/23/23 02:40 Temperature 98.0 F 98.0 F Pulse Rate Pulse Rate [Pulse Oximeter] 60 66 Pulse Rate [Right Pulse Oximeter] Respiratory Rate 18 18 16 Blood Pressure Blood Pressure [Le ft Arm] 113/82 112/69 Blood Pressure [Ri ght Arm] Blood Pressure [Ri ght Upper Arm] Pulse Oximetry 94 94 91 Oxygen Delivery Al thod Room Air Room Air Room Air 12/23/23 08:08 12/23/23 08:08 12/23/23 08:08 Temperature 97.8 F Pulse Rate Pulse Rate [Pulse Oximeter] 67 67 Pulse Rate [Right Pulse Oximeter] Respiratory Rate 12 12 12 Blood Pressure Blood Pressure [Le ft Arm] Blood Pressure [Ri ght Arm] 133/81 Blood Pressure [Ri ght Upper Arm] Pulse Oximetry 93 93 Oxygen Delivery Me thod Room Air Room Air 12/23/23 11:16 Temperature 98.1 F Pulse Rate Pulse Rate [Pulse Oximeter] 63 Pulse Rate [Right Pulse Oximeter] Respiratory Rate 12 Blood Pressure Blood Pressure [Le ft Arm] Blood Pressure [Ri ght Arm] 106/69 Blood Pressure [Ri ght Upper Arm] Pulse Oximetry 92 Oxygen Delivery Me thod Room Air DS: Data Data Completed and Pending Labs on day of discharge: Labs from last 24 hours 12/23/23 12/22/23 12/22/23 06:13 23:05 20:58 WBC RBC Hgb Hct MCV MCH MCHC RDW Coeff of Leon Plt Count Neut % (Auto) Lymph % (Auto) [place] % (Auto) Eos % (Auto) Baso % (Auto) Neut # (Auto) Lymph # (Auto) [place] # (Auto) Eos # (Auto) Baso # (Auto) Abs Immat Gran (auto) Imm/Tot Granulo (auto) D-Dimer Quant (PE/DVT) Sodium Potassium Chloride Carbon Dioxide Anion Gap BUN Creatinine Estimated Creat Clear Estimated GFR Glucose Calcium Troponin I 0.14 H* 0.26 H* 0.24 H* Triglycerides 89 Cholesterol 227 H LDL Cholesterol, Calc 148 H HDL Cholesterol 61 TSH 1.990 Lab Acknowledgement POC Troponin I 12/22/23 12/22/23 12/22/23 19:27 17:10 17:06 WBC RBC Hgb Hct MCV MCH MCHC RDW Coeff of Leon Plt Count Neut % (Auto) Lymph % (Auto) [place] % (Auto) Eos % (Auto) Baso % (Auto) Neut # (Auto) Lymph # (Auto) [place] # (Auto) Eos # (Auto) Baso # (Auto) Abs Immat Gran (auto) Imm/Tot Granulo (auto) D-Dimer Quant (PE/DVT) Sodium Potassium Chloride Carbon Dioxide Anion Gap BUN Creatinine Estimated Creat Clear Estimated GFR Glucose Calcium Troponin I 0.18 H* Triglycerides Cholesterol LDL Cholesterol, Calc HDL Cholesterol TSH Lab Acknowledgement Test Added POC Troponin I 0.12 H 12/22/23 12/22/23 14:51 14:44 WBC 6.22 RBC 5.14 Hgb 15.4 Hct 46.4 MCV 90 MCH 30 MCHC 33 RDW Coeff of Leon 13.1 Plt Count 247 Neut % (Auto) 58.0 Lymph % (Auto) 28.3 [place] % (Auto) 9.6 Eos % (Auto) 2.4 Baso % (Auto) 0.6 Neut # (Auto) 3.60 Lymph # (Auto) 1.76 [place] # (Auto) 0.60 Eos # (Auto) 0.15 Baso # (Auto) 0.04 Abs Immat Gran (auto) 0.07 Imm/Tot Granulo (auto) 1.1 D-Dimer Quant (PE/DVT) < 0.27 Sodium 139 Potassium 3.8 Chloride 104 Carbon Dioxide 24 Anion Gap 11 BUN 14 Creatinine 0.6 Estimated Creat Clear 53.09 Estimated GFR 98 Glucose 117 H Calcium 10.2 Troponin I 0.03 Triglycerides Cholesterol LDL Cholesterol, Calc HDL Cholesterol TSH Lab Acknowledgement POC Troponin I 0.[address] scan - head: Attestation: I have reviewed the pertinent imaging results. Radiologist's impression: Brain, ventricles, and extra-axial spaces: No acute intracranial hemorrhage. Murphy-white differentiation is grossly preserved. Size of the ventricles and sulci appears to be commensurate with age. Bones: No acute osseous findings. Mild mucosal thickening in the paranasal sinuses. Visualized mastoid air cells are clear. 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 IMPRESSION: No acute intracranial noncontrast CT findings. Discharge Plan Discharge Disposition: Home, Self-Care Date of Admission: 12/22/23 20:06 Attending Provider on Discharge: Bailey Kan Primary Care Provider: Provider,Not a Local Condition: Improved Anticipated Discharge Date/Time: 12/23/23 16:00 Discharge Medications: Continued levothyroxine 137 mcg capsule 137 mcg PO DAILY lisinopril 5 mg tablet 5 mg PO DAILY Discharge Orders: Discharge Order (Routine); Ordered 12/23/23 Ordered By: Bailey Kan Patient Education: Migraine Headache (GEN), High Troponin Levels (GEN) Activity Level: Activity as Tolerated Discharge Diet: Regular Follow Up Appointments: [facility] [Outside] (Post hospital follow up with PA+C provider in 3-5 days) Provider,Not a Local [Primary Care Provider] - Vlad Rolon MD [Staff Physician] - 12/28/23 11:30 am ([facility] for post hospital follow-up.) Forms: [email or web address] Info Instructions
--- NOTE | 2023-12-23 17:53 | PC.NURSE ---
End of Shift: Patient pleasant and cooperative. Patient vitally stable, lungs clear, BS WNL, IV removed, catheter intact. Patient rates headache at most 2/10, tylenol given x3 today.Patient independent in room. Patient urinating well and tolerating regular diet. Patient was up ambulating the halls. Patient signed belongings sheet and discharge paperwork with no further questions. Patient left the floor by foot to home with spouse at 1750.
== END 2023-12-23 17:50 | disposition home or self-care (01) ==
LOC: ED 19:56 → MEDSURG 20:07
PROVIDERS: Admitting Provider Internal Medicine; Emergency Provider Emergency Medicine; Visit Provider Internal Medicine
DX: I16.0 Hypertensive urgency (principal); R79.89 Other specified abnormal findings of blood chemistry; I5A Non-ischemic myocardial injury (non-traumatic); G43.909 Migraine, unspecified, not intractable, without status migrainosus; K90.41 Non-celiac gluten sensitivity; E03.9 Hypothyroidism, unspecified
CPT/HCPCS: 36415; 70450; 80048; 80061; 84443; 84484; 85025; 85379; 93005; 93306; 94761; 96374; 96375; 99284; G0378; A9270; J1200; J1885; J2405; J7030

== ENCOUNTER 2024-04-03 07:04 | Outpatient (CLI) | payer MEDICARE, BC, SELFPAY ==
--- NOTE | 2024-04-03 07:15 | CRLHL7_ITS ---
For Patients: As a result of the Century Cures Act, medical imaging exams and procedure reports are released immediately into your electronic medical record. You may view this report before your referring provider. If you have questions, please contact your health care provider. INDICATION: Headaches TECHNIQUE: TOF MRA of COW with 3D MIP provided. No comparisons. FINDINGS: The visualized first and second order intracranial vessels are unremarkable. Specifically, no suspicious narrowing or aneurysmal dilatation. IMPRESSION: Unremarkable MRA of the head as far as visualized. Dictated by Jean-Claude Chung MD @ 04/04/2024 10:55:56 AM (Electronically Signed)
== END 2024-04-03 07:05 | disposition home or self-care (01) ==
LOC: MRI 07:05
PROVIDERS: PCP Family Medicine; Visit Provider Family Medicine
DX: R51.9 Headache, unspecified (principal); Z82.49 Family history of ischemic heart disease and other diseases of the circulatory system
CPT/HCPCS: 70544

== ENCOUNTER 2024-09-20 07:39 | Outpatient (CLI) | payer MEDICARE, BC, SELFPAY ==
--- NOTE | 2024-09-20 07:45 | CRLHL7_ITS ---
For Patients: As a result of the Cures Act, medical imaging exams and procedure reports are released immediately into your electronic medical record. You may view this report before your referring provider. If you have questions, please contact your health care provider. DIGITAL DIAGNOSTIC BILATERAL MAMMOGRAM USING TOMOSYNTHESIS AND COMPUTER-AIDED DETECTION CLINICAL HISTORY: BILATERAL breast pain. COMPARISON: 07/01/2020, 04/17/2019, 03/17/2018. TECHNIQUE: Digital BILATERAL mammogram in four projections with computer-aided detection. Tomosynthesis was used in this interpretation. BREAST COMPOSITION: There are scattered areas of fibroglandular density. FINDINGS: 3D CC/MLO BILATERAL mammogram images submitted. Benign intramammary lymph node on the RIGHT is unchanged. No suspicious masses or architectural distortion. Benign calcifications. IMPRESSION: No suspicious findings. No evidence of malignancy. RECOMMENDATIONS: Routine screening mammography. A lay language report of this examination will be provided to the patient. BI-RADS Category 2: Benign Dictated by Angel Roy MD @ 09/20/2024 10:00:25 AM jj/Dictated by: Angel Roy MD @ 09/20/2024 10:00:00 AM (Electronically Signed)
== END 2024-09-20 07:40 | disposition home or self-care (01) ==
LOC: MAMMO 07:39
PROVIDERS: PCP Family Medicine; Visit Provider Obstetrics & Gynecology
DX: N64.4 Mastodynia (principal)
CPT/HCPCS: 77066; G0279